=== PATIENT | female | born 1975 | race Caucasian/White ===

== ENCOUNTER 2020-07-16 14:12 | Emergency (ER) | payer OTHER ==
[~2020-07-16] VITALS: Ht 154.9 cm; Wt 54.4 kg
[2020-07-16] MEDS ORDERED: KETO10TA2 PO (16:09)
[2020-07-16] MEDS ORDERED: NORFLEX100MG PO (16:09)
== END 2020-07-16 16:15 | disposition home or self-care (01) ==
LOC: ER 14:12
DX: M54.5 Low back pain (principal)